=== PATIENT | female | born 1990 | race African-American/Black ===

== ENCOUNTER 2019-05-10 23:35 | Emergency (ER) | payer MEDICAID ==
[~2019-05-10] VITALS: Ht 165.1 cm; Wt 55.0 kg
[2019-05-11] MEDS ORDERED: DIAZEPAM 5 MG TABLET PO ONE (00:45)
[2019-05-11] MEDS ORDERED: KETOROLAC 60MG/2ML VIAL IM ONE (00:45)
[2019-05-11 03:02] VITALS: BP 113/71
== END 2019-05-11 03:04 | disposition home or self-care (01) ==
LOC: ER 23:35
DX: S39.012A Strain of muscle, fascia and tendon of lower back, initial encounter (principal); S16.1XXA Strain of muscle, fascia and tendon at neck level, initial encounter; S09.90XA Unspecified injury of head, initial encounter; J45.909 Unspecified asthma, uncomplicated; Z88.1 Allergy status to other antibiotic agents; Z88.8 Allergy status to other drugs, medicaments and biological substances; W01.10XA Fall on same level from slipping, tripping and stumbling with subsequent striking against unspecified object, initial encounter; Y93.89 Activity, other specified; Y92.512 Supermarket, store or market as the place of occurrence of the external cause; Y99.8 Other external cause status
CPT/HCPCS: 96372; 99283; J1885